=== PATIENT | male | born 1950 | race Caucasian/White ===

== ENCOUNTER → 2017-06-13 | Outpatient (CLI) | payer MEDICARE | END | disposition home or self-care (01) | LOC: CFH 11:07 | PROVIDERS: ATTEND Internal Medicine Cardiovascular Disease | DX: I08.2 Rheumatic disorders of both aortic and tricuspid valves (principal); I25.10 Atherosclerotic heart disease of native coronary artery without angina pectoris; I10 Essential (primary) hypertension; E78.5 Hyperlipidemia, unspecified | CPT/HCPCS: 93306 ==

== ENCOUNTER 2019-12-04 12:30 | Outpatient (CLI) | payer MEDICARE | END 2019-12-04 23:59 | disposition home or self-care (01) | LOC: CFH 12:30 | PROVIDERS: ATTEND Internal Medicine Cardiovascular Disease | DX: I11.9 Hypertensive heart disease without heart failure (principal); I35.8 Other nonrheumatic aortic valve disorders; I25.10 Atherosclerotic heart disease of native coronary artery without angina pectoris; E78.5 Hyperlipidemia, unspecified | CPT/HCPCS: 93306 ==